=== PATIENT | male | born 1940 | race Hispanic/Latino ===

== ENCOUNTER 2021-06-16 09:25 | Outpatient (CLI) | payer OTHER | END 2021-06-16 09:26 | disposition home or self-care (01) | LOC: BICRAD 09:25 | PROVIDERS: ATTEND Nurse Practitioner Family | DX: M54.2 Cervicalgia (principal); M47.812 Spondylosis without myelopathy or radiculopathy, cervical region | CPT/HCPCS: 72040 ==